=== PATIENT | male | born 1970 | race Caucasian/White ===

== ENCOUNTER 2019-12-19 09:48 | Outpatient (REF) | payer OTHER, SELFPAY ==
[2019-12-19 11:31] LABS: Creatinine Urine 273.72 mg/dL; Microalbum/Creatinine Ratio Ur 11.3 ug/mg cr
[2019-12-19 11:31] LABS: Alanine Aminotransferase 36 U/L (0-40); Alkaline Phosphatase 89 U/L (39-117); Anion Gap 12 (12-20); Aspartate Amino Transferase 22 U/L (5-37); Bilirubin Total 0.6 mg/dL (0.0-1.0); Blood Urea Nitrogen 13 mg/dL (9-16); Calcium 8.2 mg/dL (8.4-10.2); Carbon Dioxide 25 mmol/L (22-29); Chloride 108 mmol/L (96-108); Cholesterol 121 mg/dL; Estimated Glomerular Filt Rate > 60; Glucose Fasting 93 mg/dL (60-99); HDL Cholesterol 33 mg/dL; LDL Cholesterol Calculated 73 mg/dl; Potassium 3.7 mmol/l (3.3-5.1); Sodium 141 mmol/L (135-145); Total Protein 7.2 g/dL (6.5-8.0); Triglycerides 76 mg/dL
[2019-12-19 11:51] LABS: TSH reflex Free T4 0.77 mIU/mL (0.32-4.0)
[2019-12-24 01:11] LABS: Testosterone, Total 309 ng/dL (250-1100)
== END 2019-12-19 09:49 | disposition home or self-care (01) ==
LOC: HO.LAB 09:48
PROVIDERS: Family Medicine; PCP Internal Medicine; Visit Provider Nurse Practitioner
DX: N52.9 Male erectile dysfunction, unspecified (principal); Z12.11 Encounter for screening for malignant neoplasm of colon
CPT/HCPCS: 80053; 80061; 82043; 84403; 84443

== ENCOUNTER → 2020-02-09 13:33 | Outpatient (BNVA) | payer OTHER, SELFPAY | PROVIDERS: PCP Family Medicine; Visit Provider Surgery Vascular Surgery | DX: I83.813 Varicose veins of bilateral lower extremities with pain (principal); I83.12 Varicose veins of left lower extremity with inflammation | CPT/HCPCS: 99202 ==

== ENCOUNTER 2020-02-22 12:48 | Outpatient (REF) | payer OTHER, SELFPAY ==
--- NOTE | 2020-02-22 12:51 | US_ITS ---
EXAMINATION: RIGHT and LEFT LOWER EXTREMITY VENOUS ULTRASOUND (Reflux Exam) CLINICAL INDICATION: Left leg varicose veins. COMPARISON: None. TECHNIQUE: Color flow triplex imaging and compression Doppler was performed to evaluate both the deep and the superficial systems bilaterally. To evaluate the superficial system, the examination was performed in the upright position. Color-flow Doppler ultrasound and compression ultrasound were utilized. In addition, maneuvers were utilized to demonstrate reflux. FINDINGS: 1. DEEP VENOUS ULTRASOUND OF THE RIGHT LOWER EXTREMITY: Respiratory variation, normal compression and augmented flow are noted in the right common femoral vein as well as the right popliteal vein and there is no evidence of deep venous thrombosis at these locations. There is no evidence of reflux in the deep system in either the common femoral vein or the popliteal vein. There is no evidence of a Nathan's cyst. 2. SUPERFICIAL ULTRASOUND WITH DOPPLER OF RIGHT LOWER EXTREMITY: The right great saphenous vein at the saphenofemoral junction measures 7 mm, at the mid thigh 2 mm, mfiwz-ewt-rqae 4 mm, rtkyh-ouh-qolr 2 mm, at mid calf 5 mm and at the ankle measures 4 mm. There is reflux in the right greater saphenous vein measuring 0.9 seconds in the mid thigh. There is an accessory right lateral greater saphenous vein that measures 4 mm and does not demonstrate reflux. The right small saphenous vein measures 2-3 mm and shows no reflux. There is a heater worker in the mid calf that measures 2 mm and does not demonstrate reflux. There are varicosities in the thigh and calf measuring between 3 and 5 mm that do not demonstrate reflux. There are varicosities in the calf measuring 2 mm that arise from the small saphenous vein and do not demonstrate reflux. 3. DEEP VENOUS ULTRASOUND OF THE LEFT LOWER EXTREMITY: Respiratory variation, normal compression and augmented flow are noted in the left common femoral vein as well as the left popliteal vein and there is no evidence of deep venous thrombosis at these locations. There is no evidence of reflux in the deep system in either the common femoral vein or the popliteal vein. . There is no evidence of a Nathan's cyst. 4. SUPERFICIAL ULTRASOUND WITH DOPPLER OF LEFT LOWER EXTREMITY: Left great saphenous vein at the saphenofemoral junction measures 6 mm, at the mid thigh 5 mm, osohy-dfg-irdv 5 mm, pvgol-keh-pvil 4 mm, at mid calf 3 mm and at the ankle measures 5 mm. There is reflux in the left greater saphenous vein at the ankle measures 0.7 seconds. There is a lateral accessory greater saphenous vein that measures 3 mm and does not demonstrate reflux. The left small saphenous vein measures 2-3 mm and shows no reflux. There is a heater worker in the distal calf that measures 5 mm and does not demonstrate reflux. There are varicosities in the thigh and calf that measure 4 to 5 mm and do not demonstrate reflux. There are varicosities in the calf that arise from the lesser saphenous vein, measure 2 mm and do not demonstrate reflux. US/US venous duplex LE BI IMPRESSION: 1. No evidence of reflux or thrombus in the common femoral veins or popliteal veins bilaterally. 2. Bilateral greater saphenous vein reflux.
== END 2020-02-22 12:49 | disposition home or self-care (01) ==
LOC: HO.US 12:48
PROVIDERS: PCP Family Medicine; Visit Provider Surgery Vascular Surgery
DX: I83.12 Varicose veins of left lower extremity with inflammation (principal); I83.891 Varicose veins of right lower extremity with other complications
CPT/HCPCS: 93970

== ENCOUNTER 2021-12-01 11:46 | Outpatient (REF) | payer OTHER, SELFPAY ==
[2021-12-01 12:29] LABS: Appearance Urine Clear; Color Urine Yellow; Glucose Urine UA Negative (Negative); Leukocyte Esterase Urine Negative (Negative); Nitrite Urine Negative (Negative); Specific Gravity - Urine 1.015 (1.005-1.025); UMIC TRIGGER UA YES; Urine Blood Trace (Negative); Urine Ketones Negative (Negative); Urine Protein Negative (Neg-Trace)
[2021-12-01 12:34] LABS: Bacteria Urine None Seen (None Seen); Hyaline Casts Urine 0-2 /LPF (0-2); Squamous Epithelial Cell Urine 0-2 /HPF (0-2); WBC Urine 0-5 /HPF (0-5)
[2021-12-01 12:52] LABS: Alanine Aminotransferase 37 U/L (0-40); Albumin Level 4.1 g/dL (3.5-5.0); Alkaline Phosphatase 81 U/L (39-117); Anion Gap 13 (12-20); Aspartate Amino Transferase 21 U/L (5-37); Bilirubin Total 0.5 mg/dL (0.0-1.0); Blood Urea Nitrogen 8 mg/dL (9-16); Calcium 9.2 mg/dL (8.4-10.2); Carbon Dioxide 26 mmol/L (22-29); Chloride 106 mmol/L (96-108); Cholesterol 141 mg/dL; Estimated Glomerular Filt Rate > 60; Glucose Fasting 98 mg/dL (60-99); HDL Cholesterol 33 mg/dL; LDL Cholesterol Calculated 93 mg/dl; Potassium 4.1 mmol/L (3.3-5.1); Sodium 141 mmol/L (135-145); Total Protein 7.3 g/dL (6.5-8.0); Triglycerides 77 mg/dL
[2021-12-01 13:05] LABS: Prostate Specific Antigen Scr 0.52 ng/mL (<0.05-4.0); TSH reflex Free T4 1.01 uIU/mL (0.32-4.0)
[2021-12-01 13:13] LABS: Creatinine Urine 176.79 mg/dL; Microalbum/Creatinine Ratio Ur 14.1 ug/mg cr
== END 2021-12-01 11:47 | disposition home or self-care (01) ==
LOC: HO.LAB 11:46
PROVIDERS: PCP Family Medicine; Visit Provider Family Medicine
DX: Z00.00 Encounter for general adult medical examination without abnormal findings (principal); I10 Essential (primary) hypertension; Z12.5 Encounter for screening for malignant neoplasm of prostate
CPT/HCPCS: 36415; 80053; 80061; 81001; 82043; 84153; 84443

== ENCOUNTER 2022-11-06 16:02 | Outpatient (AMB) | payer OTHER, SELFPAY ==
[2022-11-06 16:05] VITALS: BP 128/72; PULSE 76; RESP 12; TEMP 36.4; O2SAT 97; BMI 30.8
--- NOTE | 2022-11-06 16:05 | A.OFFPC_ITS ---
Vital Signs 11/06/22 16:05 Height 6 ft 1 in Weight 233 lb 2 oz BMI 30.8 BP 128/72 Blood Pressure Location Lt brachial Position Sitting Respiration 12 Pulse 76 Pulse Source Pulse Oximeter Temp 97.6 F Temp Source Temporal Artery Scan Pulse Oximetry (%) 97 Oxygen Delivery Method Room Air Intake Visit Reasons: f/u hypertension Screen Tender Helper Required: No Accompanied by: Self / Same As Patient Allergies No Known Allergies Allergy (Verified 11/06/22 16:10) Medication List - Last Reconciled 11/06/22 by Sathish Huffman MD amlodipine-olmesartan 10-20 mg 1 tab PO DAILY 90 days esomeprazole magnesium 20 mg PO DAILY 30 days flu vacc [id number] 6mos up(PF) mL IM metoprolol succinate ER 50 mg PO BID 90 days tadalafil 20 mg PO DAILY PRN 30 days Tobacco use date assessed: 07/31/22 Dental Screening Dental Screen Date: 11/06/22 Did you have a dental visit in the last 12 months?: No Did you have a dental problem in the last 6 months where you did not have access to dental care?: No Was dental information given to patient?: Yes HPI f/u hypertension HPI0 Details 52 y/o male presents to f/u hypertension . Blood pressure today 128/72. He is on amlodipine-olmesartan 10-20 mg daily and metoprolol 50mg b.i.d. 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 Cognitive needs: No Hearing needs: No Vision needs: No Questionnaire Thrive Questionnaire Date Thrive assessed: 08/24/20 Physical exam (Primary Care) Vital Signs: Last Vital Signs Temp 97.6 F 11/06/22 16:05 Pulse 76 11/06/22 16:05 Resp 12 11/06/22 16:05 BP 128/72 11/06/22 16:05 Pulse Ox 97 11/06/22 16:05 Oxygen Delivery Method Room Air 11/06/22 16:05 BMI result Body Mass Index 30.8 Tobacco/Smoking Status: Tobacco use Status Tobacco use date assessed 07/31/22 11/06/22 16:12 Patient Tobacco Use Status Former Tobacco user 11/06/22 16:12 e-Cigarette/Vaping Use Never Used 11/06/22 16:12 Thrive Assessment: Date of Thrive Assessment Date Thrive assessed 08/24/20 11/06/22 16:12 Assessment and Plan Assessment & Plan (1) Essential hypertension: Code(s): I10 - Essential (primary) hypertension Plan: Blood pressure is now well controlled when back on all of his medications. Goal is less than 140/90 Continue current medication regimen Orders: Orders Microalbumin, Random (w Creat) Today I10 - Essential (primary) hypertension Prostate Specific Antigen Scr Today Z12.5 - Encounter for screening for malignant neoplasm of prostate Comprehensive [place]. Panel Fast Today Z00.00 - Encounter for general adult medical examination without abnormal findings Lipid Panel Today Z00.00 - Encounter for general adult medical examination without abnormal findings TSH reflex Free T4 Today Z00.00 - Encounter for general adult medical examination without abnormal findings UA and rflx microscopic Today Z00.00 - Encounter for general adult medical examination without abnormal findings Coding Level of Care Code Est Pt Level 3 (31772) Diagnoses Essential hypertension I10
== END 2022-11-06 17:03 | disposition home or self-care (01) ==
PROVIDERS: PCP Family Medicine; Visit Provider Family Medicine
DX: I10 Essential (primary) hypertension (principal)
CPT/HCPCS: 99213

== ENCOUNTER 2024-04-17 14:30 | Outpatient (AMB) | payer OTHER, SELFPAY ==
--- NOTE | 2024-04-17 14:46 | A.OFFPC_ITS ---
Vital Signs 04/17/24 14:49 04/17/24 15:24 Height 6 ft 1 in Weight 224 lb 8 oz BMI 29.6 BP 140/100 H 130/90 H Blood Pressure Location Rt brachial Rt brachial Position Sitting Sitting Respiration 16 Pulse 105 H 104 H Pulse Source Pulse Oximeter Pulse Oximeter Temp 98.0 F Temp Source Oral Pulse Oximetry (%) 96 Oxygen Delivery Method Room Air Intake Visit Reasons: Med Review Intake Note: Patient is her to follow up for htn he states when he takes his b/p medication his readings are still coming out high. Director Of Professional Services Required: No Allergies No Known Allergies Allergy (Verified 04/17/24 14:49) Medication List - Last Reconciled 04/17/24 by Sathish Huffman MD amlodipine-olmesartan 10-20 mg 1 tab PO DAILY 90 days esomeprazole magnesium 20 mg PO DAILY 30 days flu vacc [id number] 6mos up(PF) mL IM metoprolol succinate ER 100 mg PO BID 90 days tadalafil 20 mg PO DAILY PRN 30 days Tobacco use date assessed: 07/31/22 Dental Screening Dental Screen Date: 11/06/22 HPI Med Review HPI Details 54 y/o male presents to f/u hypertension . He notes BP has been high. Blood pressure today 130/90, 104p. He is on amlodipine-olmesartan 10-20mg, metoprolol 50mg b.i.d. 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 1. Little interest or pleasure in doing things: not at all 2. Feeling down, depressed, or hopeless: not at all 3. Trouble falling or staying asleep, or sleeping too much: not at all 4. Feeling tired or having little energy: not at all 5. Poor appetite or overeating: not at all 6. Feeling bad about yourself - or that you are a failure or have let yourself or your family down: not at all 7. Trouble concentrating on things, such as reading the newspaper or watching television: not at all 8. Moving or speaking so slowly that other people could have noticed. Or the opposite - being so fidgety or restless that you have been moving around a lot more than usual: not at all 9. Thoughts that you would be better off or of hurting yourself in some way: not at all Total score: 0 Source: Developed by Drs. Shreyas Muñiz, Aleena Ramirez, Christopher Marti and colleagues, with an educational tabby from [employer]. Thrive Questionnaire Date Thrive assessed: 04/17/24 I am a: Patient What is your living situation today?: I have a steady place to live Within the past 12 months, did the food you bought not last and you didn't have the money to get more?: I choose not to answer this question Within the past 12 months, did you worry whether your food would run out before you got money to buy more?: I choose not to answer this question Do you have trouble paying for medicines?: I choose not to answer this question Do you have trouble getting transportation to medical appointments?: No Do you have trouble paying your heating and electricity bill?: No Do you have trouble taking care of your child, family member or friend?: No Do you have trouble with day-to-day activities such as bathing, preparing meals, shopping, managing finances, etc.?: No Are you currently unemployed and looking for a job?: Yes Are you interested in more education?: No Please select the resources that you would like help with: None THRIVE Score: 0 Review of Systems Const Denies chills, Denies fatigue, Denies fever(s), Denies headache(s) and Denies weakness ENT Denies dizziness and Denies headache(s) Card Denies dyspnea Resp Denies cough, Denies dyspnea, Denies wheezing and Denies other (shortness of breath) Musc Denies numbness and Denies tingling Neuro Denies dizziness, Denies headache(s), Denies numbness, Denies tingling and Denies weakness Psych Denies anxiety and Denies depression Endo Denies fatigue Aller/Immun Denies wheezing Physical exam (Primary Care) Vital Signs: Last Vital Signs Temp 98.0 F 04/17/24 14:49 Pulse 104 H 04/17/24 15:24 Resp 16 04/17/24 14:49 BP 130/90 H 04/17/24 15:24 Pulse Ox 96 04/17/24 14:49 Oxygen Delivery Method Room Air 04/17/24 14:49 BMI result Body Mass Index 29.6 Tobacco/Smoking Status: Tobacco use Status Tobacco use date assessed 07/31/22 04/17/24 14:48 Patient Tobacco Use Status Former Tobacco user 04/17/24 14:48 e-Cigarette/Vaping Use Never Used 04/17/24 14:48 PHQ-9: PHQ-9 Score PHQ-9: Total score 0 04/17/24 15:39 Thrive Assessment: Date of Thrive Assessment Date Thrive assessed 04/17/24 04/17/24 14:48 Const General: well developed; No acute distress Nutritional Appearance: well nourished Orientation/consciousness: patient oriented x3 HENMT Head: Yes normocephalic and Yes atraumatic Eyes General: appearance normal, both eyes and all related structures Pupils: Equal, round and reactive pupils present EOM: EOMs intact bilaterally Resp Effort & Inspection: normal respiratory effort Auscultation: not clear to auscultation bilaterally Cardio Rate: tachycardic Rhythm: regular rhythm Heart sounds: S1 normal heart sound present, S2 normal heart sound present, no gallops, no murmurs and no rubs Neuro General: patient oriented x3 and gait normal Cranial nerves: Yes Equal, round and reactive pupils present Psych Affect: normal affect Coding Level of Care Code Est Pt Level 3 (44224) Diagnoses Essential hypertension I10 Tachycardia R00.0 Wheeze R06.2 Assessment & Plan Assessment & Plan (1) Essential hypertension: Code(s): I10 - Essential (primary) hypertension Category: Medical Plan: Blood?pressures?are?still?too?high.??Goal?is?less?than?140/90 Heart?rate?is?mildly?elevated?as?well. Continue?amlodipine-olmesartan?as?prescribed Increase?metoprolol Follow-up?in?1?month.??Call?for?any?problems (2) Tachycardia: Code(s): R00.0 - Tachycardia, unspecified Category: Medical Plan: Hydrate?well Increasing?metoprolol (3) Wheeze: Code(s): R06.2 - Wheezing Category: Medical Plan: Patient?was?recently?treated?for?a?walking?pneumonia?with?a?Z-Jake?and?prednisone Will?repeat/extend?these Medications: New azithromycin (Zithromax Z-Jake) take 500 mg today (day 1), then 250 mg for 4 days (days 2-5) PO 5 days 6 tabs 0RF prednisone 40 mg (2 x 20 mg) PO DAILY 4 days 8 tabs 0RF Changed From metoprolol succinate ER 50 mg PO BID 90 days 180 tabs 0RF To metoprolol succinate ER 100 mg PO BID 90 days 180 tabs 3RF Refilled tadalafil administer approximately 30min before sexual activity; do not use more than 1 dose per 24hrs 20 mg PO DAILY 30 days PRN 30 tabs 11RF sexual activity N52.9 - Male erectile dysfunction, unspecified
[2024-04-17 14:49] VITALS: BP 140/100; PULSE 105; RESP 16; TEMP 36.7; O2SAT 96; BMI 29.6
[2024-04-17 15:24] VITALS: BP 130/90; PULSE 104
--- OUTSIDE RECORDS SUMMARY | 2024-04-17 16:12 | XMS_ITS | Clinical Summary ---
Author Organization [facility] it Address [address] [place] [address] Care Team Providers Care Piping Designer Name Role Phone Unavailable Primary Care Provider Unavailabl e Social History Tobacco Use Types Packs/Day Years Used Date Smoking Tobacco: Never Assessed Sex and Gender Information Value Date Recorded Sex Assigned at Not on file Legal Sex Male 3:01 AM EST Gender Identity Not on file Sexual Orientation Not on file Plan of Treatment Health Maintenance Due Date Last Done Comments DTaP,Tdap,and Td Vaccines (1 - Tdap) 1988 Hepatitis B Vaccines (1 of 3 - 19+ 3-dose series) 1988 Pneumococcal Vaccine: 50+ Ye ars (1 of 1 - PCV) 2019 Zoster Vaccines (1 of 2) 2019 COVID-19 Vaccine ( - 2023-2 5 season) 2023 Influenza Vaccine (#1) 2023 HIB Vaccines Aged Out No longer eligi ble based on patient's age to complete this topic HPV Vaccines Aged Out No longer eligi ble based on patient's age to complete this topic Hepatitis A Vaccines Aged Out No long er eligible based on patient's age to complete this topic IPV Vaccines Aged Out No longer eligi ble based on patient's age to complete this topic MMR Vaccines Aged Out No longer eligi ble based on patient's age to complete this topic Meningococcal ACWY Vaccine Aged Out N o longer eligible based on patient's age to complete this topic Meningococcal B Vacine Aged Out No lo nger eligible based on patient's age to complete this topic Pneumococcal Vaccine: Pediat rics (0 to 5 Years) and At-Risk Patients (6 to 64 Years) Aged Out No longer eligible b ased on patient's age to complete this topic RSV Immunization Patients Un juan francisco 20 months Aged Out No longer eligible b ased on patient's age to complete this topic Varicella Vaccines Aged Out No longer eligible based on patient's age to complete this topic
--- OUTSIDE RECORDS SUMMARY | 2024-04-17 16:12 | XMS_ITS | Data Portability ---
Author Organization [facility] [address] Address [address] [place] [address] Assessment No assessment recorded. Plan of Treatment Reminders Order Date Submit Date Provider Last Modified By Organization Details Last Modified Time Details Appointments None record ed. Lab None record ed. Referral None record ed. Procedures None record ed. Surgeries None record ed. Imaging None record ed. Medication Orders None record ed. Patient TargetsNo targets recorded. Patient InstructionsNo instructions recorded. Reason for Referral None Reported. Procedures Surgical History Date Name Laterality Status Provider Name and Address Organization Details Recorded Time OC-DOT PHYSICAL completed MARIA INES [facility] 03/20/2022 18:12:58 Imaging Results None recorded. Procedure Notes None recorded. Medical Equipment None Reported. Vitals None Recorded Social History None recorded. Functional Status None recorded. Mental Status None recorded. Family History Nothing Reported. Medical History No medical history recorded. Past Encounters Encounter ID Performer Location Encounter Start Date Encounter Closed Date Diagnosis/Indication Diagnosis SNOMED-CT Code Diagnosis ICD10 Code Diagnosis Note [id number] [address] [place] [address] 03/30/2020 13:39:30 03/30/2020 14:43:12 [id number] [address] [place] [address] 03/04/2020 16:07:40 03/04/2020 16:42:21 [id number] [address] [place] [address] 12/16/2021 12:37:42 12/16/2021 14:34:14 [id number] [address] [place] [address] 03/24/2021 08:34:47 03/24/2021 12:08:18 [id number] ARI[facility]NE VARGAS [address] [place] [address] 03/20/2022 17:31:22 03/20/2022 18:56:42 History and physical examination, pre-employment [id number] Z02.1 Documentat ion for this visit can be found on the electronic DOT form or scanned copy Health Concerns Section Related Observation LastModified by Organization Detai ls LastModified Time None Recorded Concern Status LastModified by Organization Details LastModified Time None Recorded Advance Directives Directive None Recorded Payers Encounter Date Sequence Insurance Name Policy Number Policy Verdugo Covered Member ID Verdugo Member ID Guarantor Name 03/20/2022 DO NOT USE Zachary Moore OC-PAY AT TIME OF SERVICE OC-PAY AT TIME OF SERVICE Zachary Moore
--- OUTSIDE RECORDS SUMMARY | 2024-04-17 16:12 | XMS_ITS | Clinical Summary ---
Author Organization [facility] Address [address] [place] [address] Care Team Providers Care Aluminum Molder Name Role Phone Unavailable Primary Care Provider Unavailabl e Source Comments PLEASE NOTE, if this patient is a minor, it may be UNLAWFUL to discuss sensitive information that is contained in these records (such as FAMILY PLANNING, MENTAL HEALTH or SUBSTANCE ABUSE) with the minor patient's parent or other person without the patient's specific authorization.[facility] Medications amLODIPine (NORVASC) 10 mg tabletIndications :Essential hypertension Take 1 Tab by mouth once daily 90 Tab 1 10/13/2019 Active furosemide (LASIX) 20 mg tabletIndications :Bilateral lower extremity edema Take 1 Tab by mouth once daily 5 Tab 10/13/2019 Active metoprolol tartrate (LOPRESSOR) 25 mg tabletIndications :Essential hypertension Take 1 tablet by mouth twice daily 180 Tablet 05/09/2020 Active Active Problems Problem Noted Date Diagnosed Date Obesity due to excess calories 09/04/2018 Overview (12/26/2018): Overview Note: Obesity due to excess calories #[id number]# EXT_ID: [id number] BODY MASS INDEX (BMI) 30-39, ADULT 09/04/2018 Overview (12/26/2018): Overview Note: BODY MASS INDEX (BMI) 30-39, ADULT #[id number]# EXT_ID: [id number] Persons encountering health services for other counseling and medical advice, not elsewhere classified 09/04/2018 Overview (12/26/2018): Overview Note: Persons encountering health services for other counseling and medical advice, not elsewhere classified #[id number]# EXT_ID: [id number] Cellulitis of trunk 09/12/2017 Overview (12/26/2018): Overview Note: Cellulitis of trunk #[id number]# EXT_ID: [id number] Edema, not elsewhere classified 08/20/2017 Overview (12/26/2018): Overview Note: Edema, not elsewhere classified #[id number]# EXT_ID: [id number] Cough 05/21/2017 Overview (12/26/2018): Overview Note: Cough #[id number]# EXT_ID: [id number] Fever of other and unknown origin 05/21/2017 Overview (12/26/2018): Overview Note: Fever of other and unknown origin #[id number]# EXT_ID: [id number] Encounter for screening for malignant neoplasms 03/26/2017 Overview (12/26/2018): Overview Note: Encounter for screening for malignant neoplasms #[id number]# EXT_ID: [id number] ESSENTIAL (PRIMARY) HYPERTENSION 12/20/2016 Overview (12/26/2018): Overview Note: ESSENTIAL (PRIMARY) HYPERTENSION #[id number]# EXT_ID: [id number] ENCOUNTER FOR DENTAL EXAM AN D CLEANING W/O ABNORMAL FINDINGS 07/23/2016 Overview (12/26/2018): Overview Note: ENCOUNTER FOR DENTAL EXAM AND CLEANING W/O ABNORMAL FINDINGS #[id number]# EXT_ID: [id number] Personal history of other (h ealed) physical injury and trauma 04/14/2015 Overview (12/26/2018): Overview Note: Personal history of other (healed) physical injury and trauma #[id number]# EXT_ID: [id number] Encounter for general examin ation without complaint, suspected or reported diagnosis 03/17/2015 Overview (12/26/2018): Overview Note: Encounter for general examination without complaint, suspected or reported diagnosis #[id number]# EXT_ID: [id number] Social History Tobacco Use Types Packs/Day Years Used Date Smoking Tobacco: Former Smokeless Tobacco: Never Alcohol Use Standard Drinks/Week Comments Not Currently 0 (1 standard drink = 0.6 oz pur e alcohol) Social Connections Answer Date Recorded Connectedness 0 11/02/2023 Financial Resource Strain Answer Date R ecorded Financial Resource Strain 0 2018 Stress Answer Date Recorded Stress 0 12/26/2018 Physical Activity Answer Date Recorded Physical Activity 0 12/26/2018 Food Insecurity Answer Date Recorded Food 0 11/07/2023 Transportation Needs Answer Date Record ed Transportation 0 12/26/2018 Housing Stability Answer Date Recorded Housing 0 12/26/2018 Safety and Environment Answer Date Hipolito rded Safety 0 12/26/2018 Utilities Answer Date Recorded Utilities 0 12/26/2018 Employment Answer Date Recorded Stress 0 11/02/2023 Sex and Gender Information Value Date Recorded Sex Assigned at Male 04/30/2019 10:54 AM PDT Legal Sex Male 10:39 PM PST Gender Identity Male 04/30/2019 10:54 AM PDT Sexual Orientation Straight 04/30/2019 10 :54 AM PDT Last Filed Vital Signs Vital Sign Reading Time Taken Comments Blood Pressure 118/80 04/30/2019 1:52 PM EDT Pulse 78 04/30/2019 1:52 PM EDT Temperature 37 ??C (98.6 ??F) 04/30/2019 1:52 PM EDT Respiratory Rate 18 04/30/2019 1:52 PM EDT Oxygen Saturation - - Inhaled Oxygen Concentration - - Weight 105.2 kg (232 lb) 10/13/2019 4:51 PM EDT Height 182.9 cm (6') 10/13/2019 4:51 PM EDT Body Mass Index 31.46 10/13/2019 4:51 PM EDT Plan of Treatment Health Maintenance Due Date Last Done Comments Hepatitis C Screening 1969 Tobacco Screening 1969 HIV Screening 1984 Imm-DTaP/Tdap/Td (1 - Tdap) 1988 Imm-Hepatitis B (1 of 3 - 19 + 3-dose series) 1988 CT Colonography 2014 Colonoscopy 2014 Colorectal Cancer Screening 2014 FIT/gFOBT 2014 Fecal DNA 2014 Flexible Sigmoidoscopy 2014 Imm-Zoster, Recombinant (1 of 2) 2019 Lipid Screening 03/26/2020 03/26/2017 Diabetes Screening 04/01/2020 04/01/2019, 03/26/2017 [id number] ( season) 2023 Imm-Influenza (#1) 2023 Alcohol and Drug Screen 02/12/2024 Depression Annual Screen 02/12/2024 10/13/2019 Procedures Procedure Name Priority Date/Time Associated Diagnosis Comments COMPREHENSIVE METABOLIC PANEL Routine 04/01/2019 10:02 AM EST LIPID PANEL Routine 03/26/2017 12:00 AM PST from Last 3 Months or Most Recently Relevant to Health Maintenance Results * (ABNORMAL) COMPRE METAB PANEL (04/01/2019 10:02 AM EST) GLUCOSE, SERUM 109(H) 65 - 99 mg/dL [facility] BUN 10 6 - 24 mg/dL [facility] CREATININE, SERUM 0.86 0.76 - 1.27 mg/dL [facility] EGFR IF NONAFRICN AM 101 >59 mL/min/1.7 3 [facility] EGFR IF AFRICN AM 117 >59 mL/min/1.7 3 [facility] BUN/CREATININE RATIO 12 9 - 20 [facility] SODIUM, SERUM 142 134 - 144 mmol/L [facility] POTASSIUM, SERUM 4.2 3.5 - 5.2 mmol/L [facility] CHLORIDE, SERUM 102 96 - 106 mmol/L [facility] CARBON DIOXIDE, TOTAL 25 20 - 29 mmol/L [facility] CALCIUM, SERUM 9.5 8.7 - 10.2 mg/dL [facility] PROTEIN, TOTAL, SERUM 7.7 6.0 - 8.5 g/dL [facility] ALBUMIN, SERUM 4.7 4.0 - 5.0 g/dL [facility] Comment:Please note refere nce interval change GLOBULIN, TOTAL 3.0 1.5 - 4.5 g/dL [facility] A/G RATIO 1.6 1.2 - 2.2 [facility] BILIRUBIN, TOTAL 0.3 0.0 - 1.2 mg/dL [facility] ALKALINE PHOSPHATASE, SERUM 92 39 - 117 IU/L [facility] AST (SGOT) 28 0 - 40 IU/L [facility] ALT (SGPT) 47(H) 0 - 44 IU/L [facility] 04/01/2019 10:0 2 AM EST 04/01/2019 Narrative [facility] - 04/01/2019 11:05 PM EST Performed at: ??01 - [facility] [address] ??[id number] Film Cleaner: Mariza Pate MD, Phone: ??[phone] us Dorota Tim APN LAB - BLOOD DRAW Final Result [facility] * (ABNORMAL) LIPID PANEL (03/26/2017 12:00 AM PST) LDL/HDL RATIO 2.2 0.0 - 3.6 RATIO UNITS DATA CONVERSION Comment: ? . ? LDL/HDL RATIO ? MEN ??WOMEN ?1/2 AVG.RISK ??1.0 ?1.5 ? AVG.RISK ??3.6 ?3.2 ?2X AVG.RISK ??6.2 ?5.0 ?3X AVG.RISK ??8.0 ?6.1 CHOLESTEROL, TOTAL 144 100 - 199 MG/DL DATA CONVERSION TRIGLYCERIDES 111 0 - 149 MG/DL DATA CONVERSION HDL CHOLESTEROL 38(L) >39 MG/DL DATA CONVERSION VLDL CHOLESTEROL BAKARI 22 5 - 40 MG/DL DATA CONVERSION LDL CHOLESTEROL CALC 84 0 - 99 MG/DL DATA CONVERSION 03/26/2017 us [facility] Provider Default HIE LAB Final Res ult DATA CONVERSION from Last 3 Months or Most Recently Relevant to Health Maintenance
--- OUTSIDE RECORDS SUMMARY | 2024-04-17 16:12 | XMS_ITS | Continuity of Care Document ---
Author Organization [facility] Address [address] [place] [address] Phone Care Team Providers Care Oil Field Operator Name Role Phone Martha Johnson APN Unavailable [...] Location Reason(s) For Visit Diagnoses Date Provider [facility], [address] [place] [address], [facility], tel:[phone] [facility] No Information Oct- 5 Johnson Martha. [address] [place], [place], [facility], . [phone], [facility], tel:[phone] [facility] med refills (chief complaint) HTN (hypertension) Sep-2 2 5 Johnson Martha. [address] [place], [place], [facility], [place]. tel:[phone], [facility], tel:[phone] [facility] Follow up (chief complaint) HEALTH EXAM-GROUP SURVEY Oct- 4 Alec Davenport. [address] [facility] [id number], [place], [address], [place]. tel: [phone] [facility], [address] [place] [address], [address], [place] tel:[phone] [facility] Follow up FMCSA (chief complaint) Sleep ApneaHypertension, Unspecified 4 Alec Davenport. [address], [id number], [place], [address], [place]. tel: [phone] [facility], [address] [place] [address], [address], [place] tel:[phone] [facility] discuss test results (chief complaint) Sleep ApneaHypertension, Unspecified [address] Jeff Ngo. [address], [id number] [address], [place], [address], [place]. tel: [phone] [facility], [address] [place] [address], [address], [place] tel:[phone] [facility] Encounter for CDL (commercial driving license) exaHypertension, UnspecifiedSleep Apnea 4 Alec Davenport. [address] [facility], [id number] [address], [place], [address], [place]. tel: [phone] [facility], [address] [place] [address], [address], [place] tel:[phone] [facility] hypertension (chief complaint) Hypertension, UnspecifiedSleep apnea 4 Jeff Ngo. [address], [id number] [address], [place], [address], [place]. tel: [phone] [facility], [address] [place] [address], [address], [place] tel:[phone] [facility] discuss test results (chief complaint) EKG, AbnormalDiastolic dysfunction, left ventricleAbnormal echocardiogramEncounter to discuss test results 4 Warm Riverskyler Acostawn. [address] [facility], [id number] [address], [place], [address], [place]. tel:[phone] [facility], [address] [place] [address], [facility], [place] tel:[phone] [address] [place] [address] Medical discuss test results (chief complaint) Abnormal EKGPAC (premature atrial contraction)Hypertension Fatty liverMass, Lump, Swelling, Superficial Skin, NoduleEKG, Abnormal Jeff Acostawn. [address], [id number] [address], [place], [address], [place]. tel:[phone] [facility], [address] [place] [address], [facility], [place] tel:[phone] [address] [place] [address] Medical discuss test results (chief complaint)for earm mass (chief complaint) Microscopic hematuriaAbnormal AST and ALTLiver lesionForearm massHernia 4 Naya Ali. [address] [facility], [place], [address], [place]. tel:[phone] [facility], [address] [place] [address], [facility], [place] tel:[phone] [address] [place] [address] Medical CDL physical (chief complaint) Annual Adult PhysicalHematuriaHx of renal calculiElevated blood pressureCyst in handEncounter for CDL (commercial driving license) exaNeed for hepatitis C screening test Warm Riverskyler Acostawn. [address], [id number] [address], [place], [address], [place]. tel:[phone] Family History Family Member Type Diagnosis Age [...] to Forearm mass) ordered Referral Ordered: Dr Mcdonald (related to Microscopic hematuria) ordered Referral Ordered: Dr Umaña (related to Hernia) ordered Referral Referred To: Dr Marshall Ordered: Referral: Dr Marshall. Hematology/Oncology. Evaluate and treat. Appointment date/timeframe: 3 Months ordered Referral Referred To: Dr Mcdonald Ordered: Referral: Dr Mcdonald. Urology. Evaluate and treat. Appointment date/timeframe: 3 Months ordered Referral Referred To: Dr Umaña Ordered: Referral: Dr Umaña. General Surgery. Evaluate and treat. Appointment date/timeframe: 3 Months ordered Future Order: Lab Order Basic Me tabolic Panel ([id number]), Ordered on: Ordered Future Order: Lab Order CBC With Platelet and Differential ([id number]), Ordered on: Ordered Future Order: Lab Order TSH ([id number]), Or dered on: Ordered Future Order: Lab Order Urinalys is - automated with microscopy ([id number]), Ordered on: Ordered Future Order: Lab Order Hepatic Function Panel ([id number]), Ordered on: Ordered Future Order: Lab Order Lipid Pr ofile ([id number]), Ordered on: Ordered Future Order: Lab Order BMP ([id number]), O rdered on: Ordered Future Order: Lab Order UA w/greyson ro ([id number]), Ordered on: Ordered Future Order: Lab Order Hepatiti s Panel ([id number]), Ordered on: Ordered Future Order: Lab Order CBC w/di ff ([id number]), Ordered on: Ordered Future Order: Lab Order CMP ([id number]), O rdered on: Ordered Future Order: Lab Order Lipid Pa chapito ([id number]), Ordered on: Ordered Future Order: Lab Order TSH ([id number]), O rdered on: Ordered Future Order: Lab Order UA w/greyson ro ([id number]), Ordered on: Ordered Future Order: Lab Order PSA ([id number]), O rdered on: Ordered Future Order: Lab Order Hemoglob in A1c ([id number]), Ordered on: Ordered Future Order: Lab Order Hep C Ab ([id number]), Ordered on: Ordered History Of Present Illness Encounter Date Complaint History Of Prese nt Illness med refills Hx HTN- needs re fills on medication. No recent labs No acute distress. No complaints at this time. Instructions Date Instruction Additional Infor mation obtain fasting labsR educe caffiene, smoking and saltFollow up pending labs1 month supply of medications sent. Related to HTN (hypertension) Go to ER if symptoms persist or worsen Related to Microscopic hematuria Call if symptoms persist Related to Microscopic hematuria Assessments Type Assessment Date No Information
== END 2024-04-17 15:37 | disposition home or self-care (01) ==
PROVIDERS: PCP Family Medicine; Visit Provider Family Medicine
DX: I10 Essential (primary) hypertension (principal); R00.0 Tachycardia, unspecified; R06.2 Wheezing

== ENCOUNTER → 2024-04-17 14:30 | Outpatient (BNVA) | payer OTHER, SELFPAY | PROVIDERS: PCP Family Medicine; Visit Provider Family Medicine | DX: I10 Essential (primary) hypertension (principal); R00.0 Tachycardia, unspecified; R06.2 Wheezing | CPT/HCPCS: 99212 ==

== ENCOUNTER 2024-08-25 16:27 | Outpatient (AMB) | payer OTHER, SELFPAY ==
--- OUTSIDE RECORDS SUMMARY | 2014-11-04 16:00 | XMS_ITS | Continuity of Care Document ---
Author Organization [facility] Address [address] [place] [address] Phone Care Team Providers Care Curam Developer Name Role Phone Martha Johnson APN Unavailable Unavailable Allergies, Adverse Reactions, Alerts Substance Reaction Status Criticality No Known Allergies Active No Inform ation Medications Medication Instructions Dosage Effective Dates (start - stop) Status Comments Lopressor 50 mg tablet take 0.5 tablet by oral route every day with meals 25 MG - Active lisinopril 20 mg-hydrochlorothiaz celeste 12.5 mg tablet take 1 tablet by oral route every day 1.00 tablet - Active Norvasc 5 mg tablet take 1 tablet by ora l route every day 5 MG - Active Advance Directives Directive Yes / No Effective Date File Name No Information Encounters Encounter Description Practice Location Reason(s) For Visit Diagnoses Date Provider [facility], [address] [place] [address], [facility], tel:[phone] [facility] No Information Oct- 5 Johnson Martha. [address] [place], [place], [facility], . [phone], [facility], tel:[phone] [facility] med refills (chief complaint) HTN (hypertension) Sep-2 2 5 Johnson Martha. [address] [place], [place], [facility], [place]. tel:[phone], [facility], tel:[phone] [facility] Follow up (chief complaint) HEALTH EXAM-GROUP SURVEY Oct- 4 Alec Davenport. [address] [facility], [id number] [address], [place], [address], [place]. tel: [phone] [facility], [address] [place] [address], [address], [place] tel:[phone] [facility] Follow up [facility] (chief complaint) Sleep ApneaHypertension, Unspecified 4 Alec Davenport. [address], [id number] [address], [place], [address], [place]. tel: [phone] [facility], [address] [place] [address], [address], [place] tel:[phone] [facility] discuss test results (chief complaint) Sleep ApneaHypertension, Unspecified 4 Jeff Ngo. [address], [id number] [address], [place], [address], [place]. 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 [address] [facility] [facility], [id number] [address], [place], [address], [place]. tel: [phone] [facility], [address] [place] [address], [address], [place] tel:[phone] [facility] hypertension (chief complaint) Hypertension, UnspecifiedSleep apnea 4 Jeff Ngo. [address], [id number] [address], [place], [address], [place]. tel: [phone] [facility], [address] [place] [address], [address], [place] tel:[phone] [facility] discuss test results (chief complaint) EKG, AbnormalDiastolic dysfunction, left ventricleAbnormal echocardiogramEncounter to discuss test results 4 Kennethskyler Acostawn. [address] [facility], [id number] [address], [place], [address], [place]. tel:[phone] [facility], [address] [place] [address], [facility], [place] tel:[phone] [address] [place] [address] Medical discuss test results (chief complaint) Abnormal EKGPAC (premature atrial contraction)Hypertension Fatty liverMass, Lump, Swelling, Superficial Skin, NoduleEKG, Abnormal Jeff Acostawn. [address], [id number] [address], [place], [address], [place]. tel:[phone] [facility], [address] [place] [address], [facility], [place] tel:[phone] [address] [place] [address] Medical discuss test results (chief complaint)for earm mass (chief complaint) Microscopic hematuriaAbnormal AST and ALTLiver lesionForearm massHernia 4 Naya Ali. [address] [facility], [place], [address], [place]. tel:[phone] [facility], [address] [place] [address], [facility], [place] tel:[phone] [address] [place] [address] Medical CDL physical (chief complaint) Annual Adult PhysicalHematuriaHx of renal calculiElevated blood pressureCyst in handEncounter for CDL (commercial driving license) exaNeed for hepatitis C screening test Kennethskyler Acostawn. [address], [id number] [address], [place], [address], [place]. tel:[phone] Family History Family Member Type Diagnosis Age At Onset Father Problem (finding) Diabetes mellitus Mother Problem (finding) coronary arterioscleros is Mother Problem (finding) Diabetes mellitus Problem (finding) Family history of Thyro id disorder Mother Problem (finding) CHF 55 Mother Problem (finding) hypertension Payers Payer name Insurance type Covered democrat ID Authoriza tion(s) Uninsured Taty Patel Sascha/ Social History Type Description Quantity Date Captured Comments Sex Male Smoking Status No Information Chief Complaint And Reason For Visit No Information Plan Of Treatment Date Type Action Status Referral Ordered: Dr Berry (related to Sleep Apnea) ordered Referral Referred To: Dr Berry Ordered: Referral: Dr Berry. Pulmonary Diseases. ordered Referral Ordered: [facility] (related to EKG, Abnormal) ordered Referral Referred To: [facility] Ordered: Referral: [facility]. Cardiology. Evaluate and treat. Appointment date/timeframe: 3 Months ordered Referral Ordered: Dr Marshall (related to Forearm mass) ordered Referral Ordered: Dr Umaña (related to Hernia) ordered Referral Ordered: Dr Mcdonald (related to Microscopic hematuria) ordered Referral Referred To: Dr Mcdonald Ordered: Referral: Dr Mcdonald. Urology. Evaluate and treat. Appointment date/timeframe: 3 Months ordered Referral Referred To: Dr Umaña Ordered: Referral: Dr Umaña. General Surgery. Evaluate and treat. Appointment date/timeframe: 3 Months ordered Referral Referred To: Dr Marshall Ordered: Referral: Dr Marshall. Hematology/Oncology. Evaluate and treat. Appointment date/timeframe: 3 Months ordered Future Order: Lab Order Basic Me tabolic Panel ([id number]), Ordered on: Ordered Future Order: Lab Order CBC With Platelet and Differential ([id number]), Ordered on: Ordered Future Order: Lab Order TSH ([id number]), Or dered on: Ordered Future Order: Lab Order Urinalys is - automated with microscopy ([id number]), Ordered on: Ordered Future Order: Lab Order Hepatic Function Panel ([id number]), Ordered on: Ordered Future Order: Lab Order Lipid Pr ofile ([id number]), Ordered on: Ordered Future Order: Lab Order BMP ([id number]), O rdered on: Ordered Future Order: Lab Order UA w/greyson ro ([id number]), Ordered on: Ordered Future Order: Lab Order Hepatiti s Panel ([id number]), Ordered on: Ordered Future Order: Lab Order CBC w/di ff ([id number]), Ordered on: Ordered Future Order: Lab Order CMP ([id number]), O rdered on: Ordered Future Order: Lab Order Lipid Pa chapito ([id number]), Ordered on: Ordered Future Order: Lab Order TSH ([id number]), O rdered on: Ordered Future Order: Lab Order UA w/greyson ro ([id number]), Ordered on: Ordered Future Order: Lab Order PSA ([id number]), O rdered on: Ordered Future Order: Lab Order Hemoglob in A1c ([id number]), Ordered on: Ordered Future Order: Lab Order Hep C Ab ([id number]), Ordered on: Ordered History Of Present Illness Encounter Date Complaint History Of Prese nt Illness med refills Hx HTN- needs re fills on medication. No recent labs No acute distress. No complaints at this time. Instructions Date Instruction Additional Infor mation obtain fasting labsR educe caffiene, smoking and saltFollow up pending labs1 month supply of medications sent. Related to HTN (hypertension) Call if symptoms persist Related to Microscopic hematuria Go to ER if symptoms persist or worsen Related to Microscopic hematuria Assessments Type Assessment Date No Information
--- NOTE | 2024-08-25 16:43 | A.OFFPC_ITS ---
Vital Signs 08/25/24 16:47 08/25/24 16:49 Height 6 ft 1 in Weight 237 lb 4 oz BMI 31.3 BP 150/80 H 120/70 Blood Pressure Location Rt brachial Rt brachial Position Sitting Sitting Respiration 14 Pulse 80 Pulse Source Pulse Oximeter Temp 97.9 F Temp Source Oral Pulse Oximetry (%) 95 Oxygen Delivery Method Room Air Intake Visit Reasons: f/u HTN Intake Note: patient is scheduled for htn Mallet Cutter Required: No Allergies No Known Allergies Allergy (Verified 08/25/24 16:44) Tobacco use date assessed: 07/31/22 Dental Screening Dental Screen Date: 11/06/22 HPI f/u HTN HPI Details 54 y/o male presents to f/u hypertension . Blood pressure today 120/70, 80p. He is on metoprolol 100mg b.i.d, amlodipine-olmesartan 10-20mg daily. 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 Cognitive needs: No Hearing needs: No Vision needs: No Questionnaire Thrive Questionnaire Date Thrive assessed: 04/17/24 I am a: Patient What is your living situation today?: I have a steady place to live Within the past 12 months, did the food you bought not last and you didn't have the money to get more?: I choose not to answer this question Within the past 12 months, did you worry whether your food would run out before you got money to buy more?: I choose not to answer this question Do you have trouble paying for medicines?: I choose not to answer this question Do you have trouble getting transportation to medical appointments?: No Do you have trouble paying your heating and electricity bill?: No Do you have trouble taking care of your child, family member or friend?: No Do you have trouble with day-to-day activities such as bathing, preparing meals, shopping, managing finances, etc.?: No Are you currently unemployed and looking for a job?: Yes Are you interested in more education?: No Please select the resources that you would like help with: None Currently or been in a relationship where the following occur: No concerns reported THRIVE Score: 0 AUDIT C Alcohol Use Questionnaire (AUDIT-C) 1. How often do you have a drink containing alcohol?: Never Total Score: 0 COURTNEY-7 AMB Questionnaire COURTNEY-7 Feeling nervous, anxious, or on edge: 0 = Not at all Not being able to stop or control worryin = Not at all Worrying too much about different things: 0 = Not at all Trouble relaxin = Not at all Being so restless that it is hard to sit still: 0 = Not at all Becoming easily annoyed or irritable: 0 = Not at all Feeling afraid as if something awful might happen: 0 = Not at all Total COURTNEY-7 score (0-4 normal; 5-9 mild; 10-14 moderate; 15-21 severe): 0 Source: Developed by Drs. Shreyas Muñiz, Aleena Ramirez, Christopher Marti and colleagues, with an educational tabby from [employer]. Review of Systems Const Denies chills, Denies fatigue, Denies fever(s), Denies headache(s) and Denies weakness ENT Denies dizziness and Denies headache(s) Card Denies dyspnea Resp Denies cough, Denies dyspnea, Denies wheezing and Denies other (shortness of breath) Musc Denies numbness and Denies tingling Neuro Denies dizziness, Denies headache(s), Denies numbness, Denies tingling and Denies weakness Psych Denies anxiety and Denies depression Endo Denies fatigue Aller/Immun Denies wheezing Physical exam (Primary Care) Vital Signs: Last Vital Signs Temp 97.9 F 08/25/24 16:47 Pulse 80 08/25/24 16:47 Resp 14 08/25/24 16:47 BP 120/70 08/25/24 16:49 Pulse Ox 95 08/25/24 16:47 Oxygen Delivery Method Room Air 08/25/24 16:47 BMI result Body Mass Index 31.3 Tobacco/Smoking Status: Tobacco use Status Tobacco use date assessed 07/31/22 08/25/24 16:43 Patient Tobacco Use Status Former Tobacco user 08/25/24 16:43 e-Cigarette/Vaping Use Never Used 08/25/24 16:43 Thrive Assessment: Date of Thrive Assessment Date Thrive assessed 04/17/24 08/25/24 16:43 Currently or been in a relationship where the following occur: No concerns reported Const General: well developed; No acute distress Nutritional Appearance: well nourished Orientation/consciousness: patient oriented x3 HENMT Head: Yes normocephalic and Yes atraumatic Eyes General: appearance normal, both eyes and all related structures Pupils: Equal, round and reactive pupils present EOM: EOMs intact bilaterally Resp Other: Wheezing Effort & Inspection: normal respiratory effort Auscultation: clear to auscultation bilaterally Cardio Rate: regular rate Rhythm: regular rhythm Heart sounds: S1 normal heart sound present, S2 normal heart sound present, no g allops, no murmurs and no rubs Neuro General: patient oriented x3 and gait normal Cranial nerves: Yes Equal, round and reactive pupils present Psych Affect: normal affect Coding Level of Care Code Est Pt Level 3 (71320) Diagnoses Essential hypertension I10 Wheeze R06.2 Assessment & Plan Assessment & Plan (1) Essential hypertension: Code(s): I10 - Essential (primary) hypertension Category: Medical Plan: Blood pressure is now controlled. Goal is less than 140/90 Continue current medication (2) Wheeze: Code(s): R06.2 - Wheezing Category: Medical Plan: Patient notes mucus and wheeze He says that this is worse with mowing the lawn and cut grass Will give him a script for cetirizine He can try some Mucinex for mucus Send a script for a Ventolin Medications: New guaifenesin 400 mg PO QID PRN 40 tabs 0RF cough 10 days cetirizine (All Day Allergy (cetirizine)) 10 mg PO DAILY PRN 90 tabs 3RF allergy symptoms 90 days Changed From albuterol sulfate 90 mcg/actuation (Ventolin HFA) 4 puffs inhalation Q6H PRN To albuterol sulfate 90 mcg/actuation (Ventolin HFA) 4 puffs inhalation Q6H PRN 8.5 grams 3RF shortness of breath or wheezing 30 days
[2024-08-25 16:47] VITALS: BP 150/80; PULSE 80; RESP 14; TEMP 36.6; O2SAT 95; BMI 31.3
[2024-08-25 16:49] VITALS: BP 120/70
--- OUTSIDE RECORDS SUMMARY | 2024-08-25 16:50 | XMS_ITS | Clinical Summary ---
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 Name Role Phone Unavailable Primary Care Provider [...] Overview Note: Obesity due to excess calories #[id number]# EXT_ID: [id number] BODY MASS INDEX (BMI) 30-39, ADULT 09/04/2018 Overview (12/26/2018): Overview Note: BODY MASS INDEX (BMI) 30-39, ADULT #[id number]# EXT_ID: [id number] Persons encountering health services for other counseling and medical advice, not elsewhere classified 09/04/2018 Overview (12/26/2018): Overview Note: Persons encountering health services for other counseling and medical advice, not elsewhere classified #[id number]# EXT_ID: [id number] Cellulitis of trunk 09/12/2017 Overview (12/26/2018): Overview Note: Cellulitis of trunk #[id number]# EXT_ID: [id number] Edema, not elsewhere classified 08/20/2017 Overview (12/26/2018): Overview Note: Edema, not elsewhere classified #[id number]# EXT_ID: [id number] Cough 05/21/2017 Overview (12/26/2018): Overview Note: Cough #[id number]# EXT_ID: [id number] Fever of other and unknown origin 05/21/2017 Overview (12/26/2018): Overview Note: Fever of other and unknown origin #[id number]# EXT_ID: [id number] Encounter for screening for malignant neoplasms 03/26/2017 Overview (12/26/2018): Overview Note: Encounter for screening for malignant neoplasms #[id number]# EXT_ID: [id number] ESSENTIAL (PRIMARY) HYPERTENSION 12/20/2016 Overview (12/26/2018): Overview Note: ESSENTIAL (PRIMARY) HYPERTENSION #[id number]# EXT_ID: [id number] ENCOUNTER FOR DENTAL EXAM AN D CLEANING W/O ABNORMAL FINDINGS 07/23/2016 Overview (12/26/2018): Overview Note: ENCOUNTER FOR DENTAL EXAM AND CLEANING W/O ABNORMAL FINDINGS #[id number]# EXT_ID: [id number] Personal history of other (h ealed) physical injury and trauma 04/14/2015 Overview (12/26/2018): Overview Note: Personal history of other (healed) physical injury and trauma #7239702# EXT_ID: [id number] Encounter for general examin ation without complaint, suspected or reported diagnosis 03/17/2015 Overview (12/26/2018): Overview Note: Encounter for general examination without complaint, suspected or reported diagnosis #[id number]# EXT_ID: [id number] Social History Tobacco Use Types Packs/Day Years [...] 78 04/30/2019 1:52 PM EDT Temperature 37 C (98.6 F) 04/30/2019 1:52 PM EDT Respiratory Rate 18 04/30/2019 1:52 PM EDT Oxygen Saturation - - Inhaled Oxygen Concentration - - Weight 105.2 kg (232 lb) 10/13/2019 4:51 PM EDT Height 182.9 cm (6') 10/13/2019 4:51 PM EDT Body Mass Index 31.46 10/13/2019 4:51 PM EDT Plan of Treatment Health Maintenance Due Date Last Done Comments Anxiety Screening 1969 Hepatitis C Screening 1969 Tobacco Screening 1969 HIV Screening 1984 Imm-DTaP/Tdap/Td (1 - Tdap) 1988 Imm-Hepatitis B (1 of 3 - 19 + 3-dose series) 1988 CT Colonography 2014 Colonoscopy 2014 Colorectal Cancer Screening 2014 FIT/gFOBT 2014 Fecal DNA 2014 Flexible Sigmoidoscopy 2014 Imm-Pneumococcal 50+ (1 of 1 - PCV) 2019 Imm-Zoster, Recombinant (1 of 2) 2019 Lipid Screening 03/26/2020 03/26/2017 Diabetes Screening 04/01/2020 04/01/2019, 03/26/2017 [id number] ( season) 2023 Alcohol and Drug Screen 02/12/2024 Depression Annual Screen 02/12/2024 10/13/2019 Imm-Influenza (#1) 2024 Procedures Procedure Name Priority Date/Time Associated Diagnosis [...] - 04/01/2019 11:05 PM EST Performed at: 01 - [facility] [id number] [employer]: Mariza Pate MD, Phone: [phone] Dorota Tim APN LAB - BLOOD DRAW Final Result Performing Organization Address City/[facility]/ZIP Co de Phone Number [facility] * (ABNORMAL) LIPID PANEL (03/26/2017 12:00 AM PST) LDL/HDL RATIO 2.2 0.0 - 3.6 RATIO UNITS DATA CONVERSION Comment: . LDL/HDL RATIO MEN WOMEN 1/2 AVG.RISK 1.0 1.5 AVG.RISK 3.6 3.2 2X AVG.RISK 6.2 5.0 3X AVG.RISK 8.0 6.1 CHOLESTEROL, TOTAL 144 100 - 199 MG/DL DATA CONVERSION TRIGLYCERIDES 111 0 - 149 MG/DL DATA CONVERSION HDL CHOLESTEROL 38(L) >39 MG/DL DATA CONVERSION VLDL CHOLESTEROL BAKARI 22 5 - 40 MG/DL DATA CONVERSION LDL CHOLESTEROL CALC 84 0 - 99 MG/DL DATA CONVERSION 03/26/2017 [facility] Provider Default HIE LAB Final Res ult DATA CONVERSION from Last 3 Months or Most Recently Relevant to Health Maintenance
--- OUTSIDE RECORDS SUMMARY | 2024-08-25 16:50 | XMS_ITS | Clinical Summary ---
[facility] Address [address] [place] [address] Care Team Providers Care Food Supervisor Name Role Phone Unavailable Primary Care Provider [...] Vaccines (1 of 2) 2019 COVID-19 Vaccine (1 - 2023-2 5 season) 2023 Influenza Vaccine (#1) 2024 HIB Vaccines Aged Out No longer eligi [...] age to complete this topic Meningococcal B Vaccine Aged Out No l onger eligible based on patient's age to complete this topic Pneumococcal Vaccine: Pediat rics (0 to 5 Years) and At-Risk Patients (6 to 49 Years) Aged Out No longer eligible b ased on patient's age to complete this topic RSV Immunization Patients Un juan francisco 20 months Aged Out No longer eligible b ased on patient's age to complete this topic Varicella Vaccines Aged Out No longer eligible based on patient's age to complete this topic
--- OUTSIDE RECORDS SUMMARY | 2024-08-25 16:50 | XMS_ITS | Data Portability ---
Author Organization [facility] [address] Address [address] [place] [address] Assessment No assessment recorded. Plan of Treatment [...] Name and Address Organization Details Recorded Time 3 OC-DOT PHYSICAL completed MARIA INES [facility] 03/20/2022 18:12:58 Imaging Results None recorded. Procedure Notes None recorded. Medical Equipment None Reported. Vitals None Recorded Social History None recorded. Functional Status None recorded. Mental Status None recorded. Family History Nothing Reported. Medical History No medical history recorded. Past Encounters Encounter ID Performer Location Encounter Start Date Encounter Closed Date Diagnosis/Indication Diagnosis SNOMED-CT Code Diagnosis ICD10 Code Diagnosis Note [id number] [address] [place] [address] 03/30/2020 13:39:30 03/30/2020 14:43:12 [id number] [address] [place] [address] 03/04/2020 16:07:40 03/04/2020 16:42:21 [id number] [address] [place] [address] 12/16/2021 12:37:42 12/16/2021 14:34:14 [id number] [address] July Vasques [facility] [address] [place] [address] 03/24/2021 08:34:47 03/24/2021 12:08:18 [id number] [facility] [address] [address] [place] [address] 03/20/2022 17:31:22 03/20/2022 18:56:42 History and physical examination, pre-employment [id number] Z02.1 Documentat ion for this visit can be found on the electronic DOT form or scanned copy Health Concerns Section Related Observation LastModified by Organization Detai ls LastModified Time None Recorded Concern Status LastModified by Organization Details LastModified Time None Recorded Advance Directives Directive None Recorded Payers Insurance Date Sequence Insurance Name Policy Number Policy Verdugo Covered Member ID Verdugo Member ID Guarantor Name 03/20/2022 DO NOT USE Zachary Moore OC-PAY AT TIME OF SERVICE OC-PAY AT TIME OF SERVICE Zachary Moore
== END 2024-08-25 17:03 | disposition home or self-care (01) ==
LOC: HO.HMCFM 16:28
PROVIDERS: PCP Family Medicine; Visit Provider Family Medicine
DX: I10 Essential (primary) hypertension (principal); R06.2 Wheezing

== ENCOUNTER → 2024-08-25 16:27 | Outpatient (BNVA) | payer OTHER, SELFPAY | PROVIDERS: PCP Family Medicine; Visit Provider Family Medicine | DX: I10 Essential (primary) hypertension (principal); R06.2 Wheezing | CPT/HCPCS: 99212 ==